=== PATIENT | male | born 1990 ===

== ENCOUNTER 2023-10-18 10:17 | Emergency (ER) | payer OTHER, SELFPAY ==
[2023-10-18 10:36] VITALS: BP 134/88
[2023-10-18 11:51] LABS: % Basophils 0.2 % (0-2); % Eosinophils 0.3 % (0-6); % Immature Granulocytes 0.4 % (0-0.5); % Lymphocytes 5.3 % (20.5-51.1); % Neutrophils 90.8 % (42.2-75.2); Absolute Immature Granulocytes 0.1 10^3/uL (0-0.05); Absolute Lymphocytes 0.6 10^3/uL (1.2-3.4); Absolute Monocytes 0.3 10^3/uL (0.1-0.6); Absolute Neutrophils 10.4 10^3/uL (1.4-6.5); Hematocrit 46.9 % (39.0-52.0); Hemoglobin 16.1 g/dL (13.0-18.0); Mean Corp Hgb Conc. 34.3 g/dL (33.0-37.0); Mean Corpuscular Hgb 27.4 pg (27.0-31.0); Mean Corpuscular Volume 79.8 fL (80.0-94.0); Mean Platelet Volume 9.3 fL (7.4-10.4); Nucleated Red Blood Cells % 0 % (-); Platelet Count 207 10^3/uL (130-400); Red Blood Cell Count 5.88 10^6/uL (4.70-6.10); Red Cell Dist. Width 13.6 % (11.5-14.5); White Blood Cell Count 11.4 10^3/uL (4.8-10.8)
[2023-10-18 11:55] LABS: Urine Albumin Negative (Neg - Trace); Urine Bilirubin Negative (Negative); Urine Character Clear (Clear); Urine Color Yellow; Urine Glucose Negative (Negative); Urine Ketone Negative (Negative); Urine Leukocyte Negative (Negative); Urine Nitrite Negative (Negative); Urine Occult Blood Negative (Negative); Urine Urobilinogen 1+ (Neg - 1+)
[2023-10-18 12:08] LABS: ALT (SGPT) 82 U/L (0-50); AST (SGOT) 237 U/L (17-59); Albumin 4.7 g/dl (3.5-5.0); Alkaline Phosphatase 65 U/L (38-126); Blood Urea Nitrogen 17 mg/dl (9-20); Calcium 9.3 mg/dl (8.4-10.2); Carbon Dioxide 28 mmol/L (22-30); Chloride 101 mmol/L (98-107); Glucose 104 mg/dl (70-99); Lipase 70 U/L (23-300); Potassium 4.6 mmol/L (3.5-5.1); Sodium 135 mmol/L (135-145); Total Bilirubin 1.4 mg/dl (0.2-1.3); Total Protein 7.7 g/dl (6.3-8.2); eGFR > 60.00
--- NOTE | 2023-10-18 13:56 | ED.GENMED ---
History of Present Illness
General
Chief Complaint: Abdominal Symptoms
Source: patient
Exam Limitations: none
Time Seen by Provider: 10/18/23 13:31
Nursing documentation reviewed up to this point in time: agreed with
Travel History
Have you had any contact with someone who has COVID-19?: No
Do you have any symptoms of coronavirus? Fever > 100 degrees, chills, cough, shortness of breath, sore throat, loss of taste or smell, muscle aches, or headache?: No
History of Present Illness
History of Present Illness:
33-year-old male with medical history of asthma presenting to the department today with concerns of abrupt onset of nausea vomiting diarrhea starting yesterday. Multiple family members with similar symptoms over the past week or so. Has had
diffuse abdominal crampy discomfort as well. Denies chest pain shortness of breath fevers. No blood in the vomit or diarrhea.
Review of Systems
Review of Systems
Allergies reviewed?: Yes
All Other Systems: ROS reviewed and negative except as documented in HPI and ROS
Phy Exam
Physical Exam
Physical Exam:
GENERAL: Alert , in no apparent distress
EYE: pupils equal and reactive
NECK: Supple, no significant adenopathy.
ENT: o/p clr, mmm.
CARDIAC: Regular rate and rhythm .
LUNGS: Clear breath sounds bilaterally, no acute respiratory distress, no wheezes/rales/rhonchi
ABDOMEN: Soft, without focal tenderness, no r/g, no cvat
NEUROLOGICAL: Alert and oriented, no focal neuro deficits
SKIN: Warm and dry, skin intact.
MUSCULOSKELETAL: No edema, well perfused.
PSYCH: Normal and appropriate interaction.
Course
Orders/Labs/Results
Orders:
Orders
10/18/23 11:43
Complete Blood Count/With Diff Urgent
Comprehensive Metabolic Panel Urgent
Lipase Urgent
Urinalysis Reflex To Culture Urgent
Date Specimen was Collected: 10/18/23
Time Specimen was Collected: 11:09
10/18/23 13:40
Dicyclomine HCl [Bentyl] 20 mg IM NOW STA
Famotidine [Pepcid] 20 mg IV NOW STA
Ondansetron Injectable [Zofran] 4 mg IV NOW STA
US Abdomen Complete/Upper Urgent
Comment:
Reason For Exam: ruq pain elevated lfts
10/18/23 13:41
0.9% Sodium Chloride 1000 ml [Nss] 1,000 ml IV BOLUS
10/18/23 15:27
Metoclopramide [Reglan] 10 mg IV NOW STA
Abnormal Lab Results
10/18/23
11:43
WBC 11.4 H 10^3/uL
(4.8-10.8)
MCV 79.8 L fL
(80.0-94.0)
Abs Immat Gran (auto) 0.1 H 10^3/uL
(0-0.05)
Absolute Neuts (auto) 10.4 H 10^3/uL
(1.4-6.5)
Absolute Lymphs (auto) 0.6 L 10^3/uL
(1.2-3.4)
Neutrophils % 90.8 H %
(42.2-75.2)
Lymphocytes % 5.3 L %
(20.5-51.1)
Glucose 104 H mg/dl
(70-99)
Total Bilirubin 1.4 H mg/dl
(0.2-1.3)
AST 237 H U/L
(17-59)
ALT 82 H U/L
(0-50)
10/18/23 11:43
10/18/23 11:43
Vital Signs
Initial and Last Documented VS:
Initial Vital Signs
Temp Pulse Resp BP Pulse Ox
98.4 F 88 18 134/88 100
10/18/23 10:36 10/18/23 10:36 10/18/23 10:36 10/18/23 10:36 10/18/23 10:36
Last Documented Vital Signs
Temp Pulse Resp BP Pulse Ox
98.4 F 88 18 134/88 100
10/18/23 10:36 10/18/23 10:36 10/18/23 10:36 10/18/23 10:36 10/18/23 10:36
MDM/Problems Addressed
MDM/Problems Addressed:
33-year-old male presenting to the emergency department today with concerns of nausea vomiting diarrhea starting last night diffuse abdominal cramping comfort. On arrival vital signs normal with blood cell count of 11.4 labs showing elevated AST
and ALT. He does claim to have a history of chronic hepatitis B and has had elevated numbers in the past but has no record of this [place] Patient was given medications here reassessed with no ongoing abdominal
pain he had an ultrasound did not show any emergent findings. Patient more than likely has a stomach bug but was advised for close outpatient follow-up for repeated labs. Return precautions given.
*Critical Care Note
Total Time (30-74mins, 75-104mins- exclusive of procedures): Not Applicable
ED Attending Note
-
Portions of this chart may have been created with voice recognition software.� Occasional wrong word or��sound alike� substitutions may have occurred due to the inherent limitations of voice recognition software.
Discharge Plan
Departure
Patient Disposition: Home (Routine Discharge)
Date of Disposition: 10/18/23
Time of Disposition: 16:12
Patient with high blood pressure during this ER visit?: No
Condition: Good
Covid-19: Not Applicable
Discharge Problem:
Vomiting, Diarrhea
Instructions: Diarrhea in adolescents and adults, Nausea and Vomiting, Adult (DC)
Prescriptions:
New
ondansetron 4 mg tablet,disintegrating
4 mg PO Q6H PRN (Reason: nausea and vomiting) Qty: 7 0RF
Referrals:
Mylene Ag DO [Family Provider] -
Activity Restrictions/Additional Instructions:
You came to the emergency department today with concerns of nausea vomiting diarrhea. Here your reassuring evaluation. You had a normal ultrasound. You did have slightly elevated liver function test you should have this repeated in the next week
or 2 to ensure this is improving. Otherwise this is most likely to be a stomach bug and should be improving over the next day or so. Return to the emergency department for any worsening, new or concerning symptoms.
Interventions
Interventions:
*Risk Screen - Suicide Last Done: 10/18/23 10:39
*General Assessment Last Done: 10/18/23 10:39
*Neglect/Abuse Screening Last Done: 10/18/23 10:39
Discharge Date and Time
Print Language: TURKISH
[2023-10-18] MEDS: NSS 1000 IV (14:26)
[2023-10-18] MEDS: ZOFRAN 4 MG IV (14:26)
[2023-10-18 14:27] VITALS: BMI 32.4
[2023-10-18] MEDS: PEPCID 20 MG IV (14:27)
[2023-10-18] MEDS: BENTYL 20 MG IM (14:27)
[2023-10-18] MEDS: REGLAN 10 MG IV (15:45)
== END 2023-10-18 16:24 | disposition home or self-care (01) ==
LOC: EMR 10:17
PROVIDERS: Emergency Medicine; EMERGENCY PHYSICIAN Emergency Medicine; FAMILY PHYSICIAN Family Medicine
DX: R11.2 Nausea with vomiting, unspecified (principal); R19.7 Diarrhea, unspecified
CPT/HCPCS: 99284; 96374; 96375 ×2; 96361; 96372; 76700; 80053; 81003; 83690; 85025